=== PATIENT | male | born 1990 | race Caucasian/White ===

== ENCOUNTER 2021-01-26 21:51 | Emergency (ER) | payer SELFPAY ==
[~2021-01-26 21:51] MED LIST: ZITHROMAX250 MG PO
== END 2021-01-27 00:15 | disposition home or self-care (01) ==
LOC: ER1 21:51
DX: S61.314A Laceration without foreign body of right ring finger with damage to nail, initial encounter (principal); W45.8XXA Other foreign body or object entering through skin, initial encounter; Y92.009 Unspecified place in unspecified non-institutional (private) residence as the place of occurrence of the external cause
CPT/HCPCS: 12001; 73130; 90471; 90715; 99283

== ENCOUNTER 2021-02-03 13:32 | Emergency (ER) | payer OTHER ==
[2021-02-03] MEDS ORDERED: BACTROBAN OINT22 GM EXT (14:35)
== END 2021-02-03 14:44 | disposition home or self-care (01) ==
LOC: ER1 13:32
DX: S61.214D Laceration without foreign body of right ring finger without damage to nail, subsequent encounter (principal); X58.XXXD Exposure to other specified factors, subsequent encounter
CPT/HCPCS: 99281